=== PATIENT | male | born 1955 | race Caucasian/White ===

== ENCOUNTER → 2024-08-15 06:20 | Day surgery (SDC) | payer OTHER, SELFPAY ==
[2024-08-15 07:43] LABS: Glucose - Point of Care 169 mg/dl (70-99)
== END ==
LOC: GI 06:20
PROVIDERS: ATTENDING PHYSICIAN Internal Medicine Gastroenterology
DX: Z12.11 Encounter for screening for malignant neoplasm of colon (principal); D12.5 Benign neoplasm of sigmoid colon; K64.8 Other hemorrhoids; Z85.038 Personal history of other malignant neoplasm of large intestine; Z98.0 Intestinal bypass and anastomosis status
CPT/HCPCS: 45385; 88305; 82962